=== PATIENT | male | born 1990 | race Native Hawaiian/Other Pacific Islander ===

== ENCOUNTER 2017-12-06 09:31 | Emergency (ER) | payer OTHER ==
--- NOTE | 2017-12-06 10:59 | C.PDOC ---
History Of Present Illness 27 year old male presents to the ED for evaluation, stating he has been experiencing difficulty sleeping for the past 2 days. Patient states he is now becoming anxious because of difficulty sleeping. He admits to drinking alcohol 3 days ago, and suspects this may be contributory to his symptoms. Patient denies stresses in life, hallucinations, and suicidal/homicidal ideation. Patient has no other complaints at this time. Time Seen by Provider: 12/06/17 10:47 Chief Complaint (Nursing): Anxiety History Per: Patient History/Exam Limitations: no limitations Onset/Duration Of Symptoms: Days (2) Current Symptoms Are (Timing): Still Present Suicide/Self Injury Attempted (Context): None Modifying Factor(s): Alcohol Associated Symptoms: Anxiety. denies: Paranoia, Suicidal Thoughts, Suicidal Plan Involuntary Hold By: None Recent travel outside of the [place]: No Additional History Per: Patient Past Medical History Reviewed: Historical Data, Nursing Documentation, Vital Signs Vital Signs: Last Vital Signs Temp 98.2 F 12/06/17 10:49 Pulse 72 12/06/17 10:49 Resp 18 12/06/17 10:49 BP 119/77 12/06/17 10:49 Pulse Ox 99 12/06/17 11:31 - Medical History PMH: No Chronic Diseases Surgical History: No Surg Hx Family History: States: Unknown Family Hx - Social History Hx Alcohol Use: Yes Hx Substance Use: No - Immunization History Hx Tetanus Toxoid Vaccination: No Hx Influenza Vaccination: No Hx Pneumococcal Vaccination: No Review Of Systems Constitutional: Positive for: Other (difficulty sleeping) Psych: Positive for: Anxiety. Negative for: Suicidal ideation Physical Exam - Physical Exam Appears: Non-toxic, No Acute Distress Skin: Normal Color, Warm, Dry Head: Atraumatic, Normacephalic Eye(s): bilateral: Normal Inspection Oral Mucosa: Moist Neck: Supple Chest: Symmetrical, No Deformity, No Tenderness Cardiovascular: Rhythm Regular, No Murmur Respiratory: Normal Breath Sounds, No Rales, No Rhonchi, No Wheezing Extremity: Normal ROM, Capillary Refill (less than 2 seconds ) Neurological/Psych: Oriented x3, Normal Speech, Normal Cognition Gait: Steady ED Course And Treatment O2 Sat by Pulse Oximetry: 99 (on RA ) Pulse Ox Interpretation: Normal Medical Decision Making Medical Decision Making: Assessment: Insomnia Progress: On reassessment, patient is resting comfortably, showing no signs of distress and is stable for discharge. Patient is advised to f/u with PMD within 1-2 days for further evaluation. Disposition Counseled Patient/Family Regarding: Studies Performed, Diagnosis, Need For Followup, Rx Given - Disposition Referrals: [facility] at [facility] [Outside] Disposition: HOME/ ROUTINE Disposition Time: 10:55 Condition: STABLE Additional Instructions: follow up with your doctor in 2 days call to make an appointment take medications as prescribed return to ER if symptoms worsens or progress Prescriptions: Hydroxyzine Pamoate [Vistaril] 25 mg PO TID PRN #12 tab PRN Reason: Other Instructions: Insomnia Forms: [facility] (Armenian), General Discharge Instructions - Clinical Impression Clinical Impression: Insomnia - Scribe Statement The provider has reviewed the documentation as recorded by the Scribe (Rebecca Hook) Provider Attestation: All medical record entries made by the Scribe were at my direction and personally dictated by me. I have reviewed the chart and agree that the record accurately reflects my personal performance of the history, physical exam, medical decision making, and the department course for this patient. I have also personally directed, reviewed, and agree with the discharge instructions and disposition.
[2017-12-06 11:19] VITALS: BP 119/77; PULSE 72; RESP 18; TEMP 98.2; O2SAT 99
== END 2017-12-06 11:10 | disposition home or self-care (01) ==
LOC: C.ER 09:31
DX: G47.00 Insomnia, unspecified (principal)